=== PATIENT | male | born 1985 | race African-American/Black ===

== ENCOUNTER 2017-09-27 21:46 | Emergency (ER) | payer OTHER ==
[~2017-09-27] VITALS: Ht 175.3 cm; Wt 101.2 kg
[2017-09-27] MEDS ORDERED: KEFLEX500 MG PO (22:44)
[2017-09-27 23:44] VITALS: BP 145/93
== END 2017-09-27 23:45 | disposition home or self-care (01) ==
LOC: EME 21:46
DX: S01.511A Laceration without foreign body of lip, initial encounter (principal); W50.0XXA Accidental hit or strike by another person, initial encounter; Y93.67 Activity, basketball; Y92.149 Unspecified place in prison as the place of occurrence of the external cause
CPT/HCPCS: 99281; 99285